=== PATIENT | female | born 1950 | race Caucasian/White ===

== ENCOUNTER 2022-04-12 17:03 | Emergency (ER) | payer OTHER ==
[~2022-04-12] VITALS: Ht 157.5 cm; Wt 99.8 kg
--- NOTE | 2022-04-12 17:15 | NUR ---
PT IS IN ROOM #1B. DR HORNER EVALUATED THE PT.
[2022-04-12] MEDS ORDERED: LEVOTHYROXIN (17:26)
[2022-04-12] MEDS ORDERED: METOPROLOL (17:26)
[2022-04-12] MEDS ORDERED: ATORVASTATIN (17:26)
[2022-04-12] MEDS ORDERED: MULTIVITAMINS (17:26)
--- NOTE | 2022-04-12 18:16 | NUR ---
PT WAS D/C'd TO HOME. D/C INSTRUCTIONS GIVEN TO THE PT BY DR HORNER.
[2022-04-12 18:17] VITALS: BP 149/89
== END 2022-04-12 18:18 | disposition home or self-care (01) ==
LOC: ER 17:07
DX: R23.2 Flushing (principal); F41.9 Anxiety disorder, unspecified; T50.8X5A Adverse effect of diagnostic agents, initial encounter; Y92.89 Other specified places as the place of occurrence of the external cause; G58.8 Other specified mononeuropathies; Z85.42 Personal history of malignant neoplasm of other parts of uterus
CPT/HCPCS: A4663